=== PATIENT | female | born 2000 | race Two or more races ===

== ENCOUNTER 2022-12-02 14:13 | Outpatient (CLI) | payer OTHER | END 2022-12-02 16:16 | disposition home or self-care (01) | LOC: PRENATAL 14:13 | PROVIDERS: ATTEND Obstetrics & Gynecology Maternal & Fetal Medicine | DX: O35.9XX0 Maternal care for (suspected) fetal abnormality and damage, unspecified, not applicable or unspecified (principal); O35.3XX0 Maternal care for (suspected) damage to fetus from viral disease in mother, not applicable or unspecified; Z3A.20 20 weeks gestation of pregnancy ==

== ENCOUNTER 2023-02-24 14:26 | Outpatient (CLI) | payer OTHER | END 2023-02-24 15:30 | disposition home or self-care (01) | LOC: PRENATAL 14:26 | PROVIDERS: ATTEND Obstetrics & Gynecology Maternal & Fetal Medicine | DX: O26.849 Uterine size-date discrepancy, unspecified trimester (principal); O35.9XX0 Maternal care for (suspected) fetal abnormality and damage, unspecified, not applicable or unspecified; O36.8199 Decreased fetal movements, unspecified trimester, other fetus; Z3A.32 32 weeks gestation of pregnancy ==

== ENCOUNTER 2023-03-31 20:20 | Outpatient (CLI) | payer OTHER | END 2023-03-31 21:55 | disposition home or self-care (01) | LOC: NST 20:20 | PROVIDERS: ATTEND Obstetrics & Gynecology | DX: Z34.83 Encounter for supervision of other normal pregnancy, third trimester (principal) ==

== ENCOUNTER 2023-04-15 06:48 | Inpatient (IN) | payer OTHER ==
[~2023-04-15] VITALS: Ht 154.9 cm; Wt 3.2 kg
[2023-04-15] MEDS ORDERED: PRENATAL TABLE1 EAC1 PO (08:25)
[2023-04-15] MEDS ORDERED: ZYRTEC10 MG PO (08:25)
[2023-04-18] MEDS ORDERED: Tylenol #3 PO (10:09)
[2023-04-18] MEDS ORDERED: NAPR500T14 PO (10:09)
== END 2023-04-18 11:50 | disposition home or self-care (01) | DRG 788 ==
LOC: OB/GYN 06:48 → LDR 06:48 → O/R 17:23 → OB/GYN 17:31
PROVIDERS: ADMIT Student in an Organized Health Care Education/Training Program; ATTEND Student in an Organized Health Care Education/Training Program
PROC: 4A1HXCZ Monitoring of Products of Conception, Cardiac Rate, External Approach (ICD-10-PCS; 2023-04-15)
PROC: 10D00Z1 Extraction of Products of Conception, Low, Open Approach (ICD-10-PCS; principal; 2023-04-15 16:00)
DX: O62.1 Secondary uterine inertia (principal); Z3A.39 39 weeks gestation of pregnancy; Z37.0 Single live birth; Z20.822 Contact with and (suspected) exposure to COVID-19

== ENCOUNTER 2023-04-27 04:31 | Emergency (ER) | payer OTHER ==
[~2023-04-27] VITALS: Ht 165.1 cm; Wt 74.8 kg
[~2023-04-27 04:31] MED LIST: NAPR500T14 PO; PRENATAL TABLE1 EAC1 PO; Tylenol #3 PO; ZYRTEC10 MG PO
== END 2023-04-27 06:37 | disposition home or self-care (01) ==
LOC: ER 04:31
DX: G89.18 Other acute postprocedural pain (principal)